=== PATIENT | female | born 1955 | race Caucasian/White ===

== ENCOUNTER 2016-06-10 11:46 | Emergency (ER) | payer OTHER ==
[~2016-06-10] VITALS: Ht 165.1 cm; Wt 87.6 kg
[~2016-06-10 11:46] MED LIST: ASPCH81X PO; CZR50 PO; DICL50TA3 PO; GLUC10007 PO; MULT-506 PO; OMEG10007 PO; PRLSR20 PO; VITACAP26 PO
[2016-06-10 11:52] VITALS: TEMP 36.5; Ht 165.1 cm; Wt 87.6 kg
[2016-06-10] MEDS ORDERED: CHOL1000 PO (12:44)
[2016-06-10] MEDS ORDERED: TRAM-10 PO (12:44)
[2016-06-10] MEDS ORDERED: DIGE1CAP PO (12:44)
[2016-06-10 13:10] LABS: BASO % 0.5 %; BASO ABS # 0.04 K/uL (0-0.2); COMPLETE YES; EOS % 4.4 %; HEMATOCRIT 40.2 % (37-47); IG% 0.1 %; LYMPH % 27.8 %; LYMPH ABS # 2.28 K/uL (1.2-3.4); MEAN CELL VOLUME 90.1 fL (80-100); MEAN CORPUSCULAR HEMOGLOBIN 31.4 pg (25-34); MEAN CORPUSCULAR HGB CONC 34.8 g/dl (32-36); MEAN PLATELET VOLUME 10.8 fL (7.4-10.4); NEUT % 59.2 %; PLATELET COUNT 331 K/uL (130-400); RED BLOOD COUNT 4.46 M/uL (4.2-5.4); WHITE BLOOD COUNT 8.21 K/uL (4.8-10.8)
[2016-06-10 13:26] LABS: BUN/CREATININE RATIO 15.3 (10-20); CALCIUM 9.6 mg/dl (8.5-10.1); CREATININE 0.92 mg/dl (0.60-1.20); POTASSIUM 3.4 mmol/L (3.5-5.1)
--- NOTE | 2016-06-10 13:26 | DIAGNOSTIC IMAGING REPORT ---
CT SCAN OF THE ABDOMEN AND PELVIS WITHOUT IV CONTRAST CLINICAL HISTORY: Right-sided back pain. COMPARISON STUDY: Renal ultrasound dated 12/25/2008. TECHNIQUE: CT scan of the abdomen and pelvis is performed from the lung bases to the proximal femora. Images are reviewed in the axial, sagittal, and coronal planes. IV contrast was not administered for this examination. Automated dose control exposure was utilized. FINDINGS: Lung bases: The heart is normal in size and without pericardial effusion. There are coronary artery calcifications. The lung bases are clear noting dependent atelectasis the there is a moderate hiatal hernia. Liver: The unenhanced liver is normal in size and contour. The liver demonstrates diffusely diminished attenuation consistent with hepatic steatosis. Fatty sparing is seen adjacent to the gallbladder fossa. There is no intrahepatic biliary ductal dilatation. Gallbladder: Unremarkable. Spleen: Normal in size and attenuation. Pancreas: Minimal haziness is questioned around the distal pancreatic body and tail. There is no peripancreatic fluid. Adrenal glands: Unremarkable. Kidneys: The unenhanced kidneys demonstrate mild cortical atrophy and are without hydronephrosis. There are no renal calculi identified. There is no evidence of contour deforming renal mass lesion. Abdominal vasculature: The abdominal aorta is normal in course and caliber. Bowel: The small bowel and colon are normal in course and caliber. There is mild colonic diverticulosis without CT evidence of acute diverticulitis. The appendix is well-visualized and normal. Peritoneum: There is no intraperitoneal free air or abdominal ascites. There is a fat-containing umbilical hernia. Lymphadenopathy: None. Pelvic viscera: The bladder, uterus, and adnexa are normal as visualized. Skeletal structures: The skeletal structures are osteopenic. There is mild lumbosacral spondylosis. No lytic or blastic lesions are seen. Sclerotic change is noted in the sacroiliac joints. IMPRESSION: 1. Minimal haziness/indistinctness is questioned involving the pancreatic body and tail. No definite peripancreatic stranding or fluid is seen. This may simply be related to glandular atrophy. Correlate with clinical findings and serum lipase levels for evidence of mild acute pancreatitis. 2. There are no additional acute infectious or inflammatory findings questioned in the abdomen or pelvis. 3. Moderate hiatal hernia. 4. Hepatic steatosis. 5. Additional changes as above. Electronically signed by: Jeovany Villanueva M.D. 06/10/2016 1:24 PM Dictated Date/Time: 06/10/2016 1:16 PM
[2016-06-10 13:39] LABS: URINE APPEARANCE CLOUDY (CLEAR); URINE BILIRUBIN NEG (NEG); URINE COLOR YELLOW; URINE EPITHELIAL CELL AUTO >30 /lpf (0-5); URINE NITRITE NEG (NEG); URINE PH 5.5 (4.5-7.5); URINE SPECIFIC GRAVITY 1.018 (1.000-1.030); UROBILINOGEN NEG (NEG); ZZUR CULT IF INDIC CLEAN CATCH YES
[2016-06-10 13:40] LABS: MANUAL MICROSCOPIC REQUIRED? NO; REVIEW REQ? NO
--- NOTE | 2016-06-10 13:43 | DIAGNOSTIC IMAGING REPORT ---
CT SCAN OF THE LUMBAR SPINE WITHOUT IV CONTRAST CLINICAL HISTORY: Back pain. COMPARISON STUDY: Abdominal CT performed concurrently on 06/10/2016. TECHNIQUE: CT scan of the lumbar spine is performed from the lower thoracic spine to the sacrum. Images are reviewed in the axial, sagittal, and coronal planes. IV contrast was not administered for this examination. CT DOSE: 1028.47 mGy.cm FINDINGS: The skeletal structures are osteopenic. There is no evidence of fracture or malalignment. Vertebral body height and alignment are maintained throughout the lumbar spine. The transverse and spinous processes appear intact. There is no spondylolysis. No lytic or blastic lesions are seen. Minimal facet arthropathy is noted in the lower lumbar region. There is mdeezgcj-vj-avabwnuq degenerative disc space narrowing at L5-S1 with associated endplate sclerosis and vacuum phenomenon. The remaining disc spaces appear preserved. Small posterior disc bulges are noted at L3-L4, L4-L5, and L5-S1. No large disc herniation is seen. The visualized sacrum and bony pelvis appear intact. The paraspinous soft tissues are normal in appearance. Hepatic steatosis is observed. A retroaortic left renal vein is incidentally noted. IMPRESSION: 1. There is no acute bony abnormality seen involving the lumbosacral spine. 2. Mild spondylotic change as detailed above. Dictated: 06/10/2016 1:29 PM Transcribed: 06/10/2016 1:43 PM WESLEY_Sarah Electronically signed by: Jeovany Villanueva M.D. 06/10/2016 1:56 PM Dictated Date/Time: 06/10/2016 1:29 PM
[2016-06-10] MEDS ORDERED: OXYC1TAB3 PO (14:41)
[2016-06-10] MEDS ORDERED: SULF800T23 PO (14:41)
--- NOTE | 2016-06-10 14:42 | EMERGENCY ROOM VISIT NOTE ---
History First contact with patient: 12:20 Chief Complaint: BACK PAIN Stated Complaint: LOW BACK PAIN History of Present Illness The patient is a 61 year old female who presents to the Emergency Room with complaints of low back pain. The patient reports that she has had pain in her right lower back for the past one month. She does have chronic pain due to arthritis, but states this has worsened over the past 1 month. She was previously taking diclofenac, but states that she had kidney dysfunction and was switched to tramadol. She states that her pain seems to have worsened since switching these medications. She reports that her back pain occasionally wakes her up at night. She rates the discomfort an 8/10. The pain does not radiate into her abdomen or into her legs. The patient also notes that she has had urinary symptoms off and on for the past several weeks. She reports dysuria and pressure when urinating. She also reports that she has been mildly constipated over the past month. She does report some associated nausea and decreased appetite secondary to pain. She denies any blood in her stools, chest pain, shortness of breath, vaginal bleeding/discharge or abdominal pain. Review of Systems A complete 10-point Review of Systems was discussed with the patient, with pertinent positives and negatives listed in the History of Present Illness. All remaining Review of Systems questions can be considered negative unless otherwise specified. Social History Smoking Status: Never Smoker Current/Historical Medications Scheduled Aspirin (Aspirin Chewable), 81 MG PO DAILY Cholecalciferol (Vitamin D3), 1 TAB PO DAILY Fish Oil ([place]-3), 1 CAP PO DAILY Losartan Potassium (Losartan Potassium), 50 MG PO DAILY Multivitamin (Multivitamin), 1 TAB PO DAILY Omeprazole (Prilosec), 20 MG PO DAILY Sulfa/Trimethoprim (Bactrim Ds 800MG/160MG), 1 TAB PO BID Tramadol (Ultram), 1 TAB PO BID Scheduled PRN Digestive Enzymes (Gastrace Digestive Suppor), 1 CAP PO UD PRN for gas Oxycodone Ir (Roxicodone Ir), 1-2 TAB PO Q4H PRN for Pain Allergies Uncoded Allergies: RAGWEED SEASONAL (Allergy, Mild, cough, 04/19/15) Physical Exam Vital Signs Date Time Temp Pulse Resp B/P Pulse Ox O2 Delivery O2 Flow Rate FiO2 06/10/16 14:50 93 17 125/92 95 06/10/16 13:46 95 20 136/99 95 Room Air 06/10/16 11:52 36.5 110 20 133/92 93 Room Air Physical Exam VITALS: Vitals are noted on the nurse's note and reviewed by myself. Vital signs stable. GENERAL: This is a 61-year-old female, in no acute distress, nondiaphoretic, well-developed well-nourished. SKIN: Capillary reflex less than 2 seconds. HEENT: Normocephalic. PERRLA. EOMI. Nares patent. Mucous membranes moist. Neck is supple without nuchal rigidity. HEART: Regular rate and rhythm without murmurs gallops or rubs. LUNGS: Clear to auscultation bilaterally without wheezes, rales or rhonchi. ABDOMEN: Positive bowel sounds x 4. Soft, nontender to palpation. MUSCULOSKELETAL: Mild tenderness of the right lumbar region. No tenderness over the lumbar spinous processes. NEURO: Patient was alert and oriented to person place and time. Normal sensation to light and sharp touch. Medical Decision & Procedures ER Provider Diagnostic Interpretation: CT SCAN OF THE ABDOMEN AND PELVIS WITHOUT IV CONTRAST IMPRESSION: 1. Minimal haziness/indistinctness is questioned involving the pancreatic body and tail. No definite peripancreatic stranding or fluid is seen. This may simply be related to glandular atrophy. Correlate with clinical findings and serum lipase levels for evidence of mild acute pancreatitis. 2. There are no additional acute infectious or inflammatory findings questioned in the abdomen or pelvis. 3. Moderate hiatal hernia. 4. Hepatic steatosis. 5. Additional changes as above. CT SCAN OF THE LUMBAR SPINE WITHOUT IV CONTRAST FINDINGS: The skeletal structures are osteopenic. There is no evidence of fracture or malalignment. Vertebral body height and alignment are maintained throughout the lumbar spine. The transverse and spinous processes appear intact. There is no spondylolysis. No lytic or blastic lesions are seen. Minimal facet arthropathy is noted in the lower lumbar region. There is dqillkhh-zx-ldytjoiw degenerative disc space narrowing at L5-S1 with associated endplate sclerosis and vacuum phenomenon. The remaining disc spaces appear preserved. Small posterior disc bulges are noted at L3-L4, L4-L5, and L5-S1. No large disc herniation is seen. The visualized sacrum and bony pelvis appear intact. The paraspinous soft tissues are normal in appearance. Hepatic steatosis is observed. A retroaortic left renal vein is incidentally noted. IMPRESSION: 1. There is no acute bony abnormality seen involving the lumbosacral spine. 2. Mild spondylotic change as detailed above. Laboratory Results 06/10/16 12:45 Red Blood Count 4.46, Mean Corpuscular Volume 90.1, Mean Corpuscular Hemoglobin 31.4, Mean Corpuscular Hemoglobin Concent 34.8, Mean Platelet Volume 10.8, Neutrophils (%) (Auto) 59.2, Lymphocytes (%) (Auto) 27.8, Monocytes (%) (Auto) 8.0, Eosinophils (%) (Auto) 4.4, Basophils (%) (Auto) 0.5, Neutrophils # (Auto) 4.86, Lymphocytes # (Auto) 2.28, Monocytes # (Auto) 0.66, Eosinophils # (Auto) 0.36, Basophils # (Auto) 0.04 06/10/16 12:45 Test 06/10/16 12:35 06/10/16 12:45 Urine Color YELLOW Urine Appearance CLOUDY (CLEAR) Urine pH 5.5 (4.5-7.5) Urine Specific [place] 1.018 (1.000-1.030) Urine Protein NEG (NEG) Urine Glucose (UA) NEG (NEG) Urine Ketones TRACE (NEG) Urine Occult Blood NEG (NEG) Urine Nitrite NEG (NEG) Urine Bilirubin NEG (NEG) Urine Urobilinogen NEG (NEG) Urine Leukocyte Esterase MODERATE (NEG) Urine WBC (Auto) 5-10 /hpf (0-5) Urine RBC (Auto) 0-4 /hpf (0-4) Urine Hyaline Casts (Auto) 1-5 /lpf (0-5) Urine Epithelial Cells (Auto) >30 /lpf (0-5) Urine Bacteria (Auto) 2+ (NEG) White Blood Count 8.21 K/uL (4.8-10.8) Red Blood Count 4.46 M/uL (4.2-5.4) Hemoglobin 14.0 g/dL (12.0-16.0) Hematocrit 40.2 % (37-47) Mean Corpuscular Volume 90.1 fL (80-100) Mean Corpuscular Hemoglobin 31.4 pg (25-34) Mean Corpuscular Hemoglobin Concent 34.8 g/dl (32-36) Platelet Count 331 K/uL (130-400) Mean Platelet Volume 10.8 fL (7.4-10.4) Neutrophils (%) (Auto) 59.2 % Lymphocytes (%) (Auto) 27.8 % Monocytes (%) (Auto) 8.0 % Eosinophils (%) (Auto) 4.4 % Basophils (%) (Auto) 0.5 % Neutrophils # (Auto) 4.86 K/uL (1.4-6.5) Lymphocytes # (Auto) 2.28 K/uL (1.2-3.4) Monocytes # (Auto) 0.66 K/uL (0.11-0.59) Eosinophils # (Auto) 0.36 K/uL (0-0.5) Basophils # (Auto) 0.04 K/uL (0-0.2) RDW Standard Deviation 41.3 fL (36.4-46.3) RDW Coefficient of Variation 12.5 % (11.5-14.5) Immature Granulocyte % (Auto) 0.1 % Immature Granulocyte # (Auto) 0.01 K/uL (0.00-0.02) Anion Gap 11.0 mmol/L (3-11) Est Creatinine Clear Calc Drug Dose 68.4 ml/min Estimated GFR () 76.8 Estimated GFR (Non- 66.3 BUN/Creatinine Ratio 15.3 (10-20) Calcium Level 9.6 mg/dl (8.5-10.1) Total Bilirubin 0.4 mg/dl (0.2-1) Aspartate Amino Transf (AST/SGOT) 21 U/L (15-37) Alanine Aminotransferase (ALT/SGPT) 28 U/L (12-78) Alkaline Phosphatase 102 U/L (45-117) Total Protein 7.9 gm/dl (6.4-8.2) Albumin 4.0 gm/dl (3.4-5.0) Globulin 3.9 gm/dl (2.5-4.0) Albumin/Globulin Ratio 1.0 (0.9-2) Lipase 259 U/L (73-393) Date/Time Source Procedure Growth Status 06/10/16 12:35 Urine , Clean Catch Urine Culture - Final GREATER THAN THREE TYPES OF ORGANISMS... Complete Medical Decision Differential diagnosis includes pyelonephritis, renal calculus, musculoskeletal back pain, pancreatitis, gastroenteritis, colitis, among others. The patient was evaluated as above. Labs were drawn and IV access was obtained. Imaging studies were performed and read by radiology as above. The patient declined analgesics. The patient was reassessed multiple times during their stay in the emergency department and remained in stable condition. The patient is a 61-year-old female who presents today complaining of right- sided back pain and urinary symptoms. Labs revealed no leukocytosis, anemia or concerning electrolyte abnormalities. Urinalysis was suggestive of infection. The patient has had urinary symptoms and will be placed on a course of Bactrim for suspected UTI pending culture. CT of the abdomen and pelvis without contrast was performed and did show evidence of possible pancreatitis, however the patient's lipase was not elevated and she does not have any right upper quadrant pain/tenderness or vomiting, making pancreatitis unlikely. There was no evidence of kidney stone or other acute infectious finding within the abdomen. CT of the lumbar spine was also performed and was unremarkable. The patient does have chronic back pain and I feel that it has likely worsened since stopping the diclofenac. However, the patient did have kidney dysfunction with diclofenac and I do not recommend restarting this at this time. I did give the patient a prescription for pain medication and instructed her to follow up with her primary care provider this week for further evaluation. She was agreeable to this treatment plan. Based on the patient's presentation, lab results, and imaging studies, I feel the patient is stable for outpatient treatment. The patient's case was reviewed with Dr. Henderson, ED attending physician, who agreed with my assessment and treatment plan. Discharge instructions were reviewed with the patient. The patient verbalized understanding of my assessment and treatment plan and was discharged home in good condition. Impression Primary Impression: Urinary tract infection Additional Impression: Lumbar back pain Departure Information Dispostion Home / Self-Care Condition GOOD Prescriptions Sulfa/Trimethoprim (Bactrim Ds 800MG/160MG) Tab 1 TAB PO BID for 5 Days, #10 TAB Prov: Frances Keller PA-C 06/10/16 Oxycodone Ir (Roxicodone Ir) 5 Mg Tab 1-2 TAB PO Q4H Y for Pain, #15 TAB For Initial Treatment Prov: Frances Keller PA-C 06/10/16 Referrals Frantz Guzman M.D. (PCP) Patient Instructions My [facility] Additional Instructions You have been treated in the Emergency Department for a Urinary Tract Infection (UTI) and back pain. You have been prescribed Bactrim to be taken twice daily for 5 days. This is an antibiotic. All antibiotics have the potential to cause diarrhea. Stop this medication and contact a medical provider if you were to develop any significant adverse side effects including: wheezing, shortness of breath, passing out, vomiting, or a diffuse rash. Always take antibiotics as directed and COMPLETE the ENTIRE course regardless of the improvement of your symptoms. Drink plenty of water and stay well hydrated. As with any trip to the Emergency Department, you should follow-up with your Primary Care Provider from today's visit. You have been prescribed OxyIR to be used for pain control. Take 1-2 tablets every 4-6 hours as needed for pain. This is a narcotic medication. You cannot drive or consume alcohol while on this medicine. This medicine should only be used for pain that cannot be controlled with qabt-ilk-yduviwy pain medicines. Return to the emergency department if your symptoms persist despite treatment plan outlined above or if the following symptoms occur: increased fevers, chills , worsening low back pain, nausea/vomiting, or blood in your urine. Problem Qualifiers Primary Impression: Urinary tract infection Urinary tract infection type: site unspecified Hematuria presence: without hematuria Qualified Codes: N39.0 - Urinary tract infection, site not specified Additional Impression: Lumbar back pain Chronicity: chronic Back pain laterality: right Sciatica presence: without sciatica Qualified Codes: M54.5 - Low back pain; G89.29 - Other chronic pain
[2016-06-10 14:50] VITALS: BP 125/92; PULSE 93; O2SAT 95
== END 2016-06-10 14:51 | disposition home or self-care (01) ==
LOC: C.EDB 11:47 → C.EDC 14:51
DX: N39.0 Urinary tract infection, site not specified (principal); M54.5 Low back pain; G89.29 Other chronic pain; Z79.82 Long term (current) use of aspirin; Z79.899 Other long term (current) drug therapy

== ENCOUNTER 2016-09-16 11:11 | Emergency (ER) | payer OTHER ==
[~2016-09-16] VITALS: Ht 165.1 cm; Wt 81.8 kg
[~2016-09-16 11:11] MED LIST changes: +CHOL1000 PO; -DICL50TA3 PO; +DIGE1CAP PO; -GLUC10007 PO; +OXYC1TAB3 PO; +TRAM-10 PO; -VITACAP26 PO
[2016-09-16 11:14] VITALS: TEMP 36.5; Ht 165.1 cm; Wt 81.8 kg
--- NOTE | 2016-09-16 11:47 | EMERGENCY ROOM VISIT NOTE ---
History Report prepared by Rohit: Mandy Lopez Under the Supervision of: Dr. Jeovany Blank M.D. First contact with patient: 11:27 Chief Complaint: MENTAL HEALTH EVALUATION Stated Complaint: DEPRESSION History of Present Illness The patient is a 61 year old female who presents to the Emergency Room with complaints of worsening depression starting 1 week ago. She is under a lot of stress at home with her son's legal problems. Last week, they set up an intervention for him and sent him to rehab. She states that the intervention was very difficult for her and she has been unable to sleep since then. She has been unable to eat and has had tearful episodes. She feels unable to leave the house because of her emotions. She denies being suicidal. She has a history of depression when she was going through her divorce. She has not been on any medications for the past 13 years. She denies any other medical problems. She would not want to be admitted. She was sent to the ED by her doctor for a quick referral to counselling. Source of History: patient Onset: 1 week ago Position: other (mental health) Quality: other (depression) Timing: worsening Note: Pt is unable to sleep, unable to eat, tearful. Pt denies suicidal ideation. Review of Systems See HPI for pertinent positives & negatives. A total of 10 systems reviewed and were otherwise negative. Past Medical & Surgical Medical Problems: (1) Depression (2) Diabetes Family History Diabetes mellitus FH: heart disease Hypertension Social History Smoking Status: Never Smoker Marital Status: Housing Status: lives with significant other Occupation Status: retired Current/Historical Medications Scheduled Aspirin (Aspirin Chewable), 81 MG PO DAILY Fish Oil ([place]-3), 1 CAP PO DAILY Glucosamine-Chondroitin (Glucosamine & Chondroitin 500-400 mg), 2 CAP PO DAILY Losartan Potassium (Losartan Potassium), 50 MG PO DAILY Multivitamin (Multivitamin), 1 TAB PO DAILY Omeprazole (Prilosec), 20 MG PO DAILY Tramadol (Ultram), 1 TAB PO BID [Calcium], 2 CAP PO DAILY Scheduled PRN Digestive Enzymes (Gastrace Digestive Suppor), 1 CAP PO UD PRN for gas Allergies Uncoded Allergies: RAGWEED SEASONAL (Allergy, Mild, cough, 04/19/15) Physical Exam Vital Signs Date Time Temp Pulse Resp B/P Pulse Ox O2 Delivery O2 Flow Rate FiO2 09/16/16 13:48 78 18 143/91 99 Room Air 09/16/16 11:14 36.5 99 18 146/89 98 Room Air Physical Exam GENERAL: Patient is anxious and tearful at times. HEENT: No acute trauma, normocephalic atraumatic, mucous membranes moist, no nasal congestion, no scleral icterus. NECK: No stridor, no adenopathy, no meningismus, trachea is midline. LUNGS: Clear to auscultation bilaterally, no wheeze, no rhonchi, breath sounds equal. HEART: Without murmurs gallops or rubs, regular rate and rhythm. ABDOMEN: Soft, nontender, bowel sounds positive, no hernias, no peritonitis. EXTREMITIES: No cyanosis or edema, full range of motion of all the joints without pain or difficulty, no signs for acute trauma. NEUROLOGIC: Oriented x 3, no acute motor or sensory deficits, no focal weakness. SKIN: No rash, no jaundice, no diaphoresis. PSYCH: Cooperative, anxious, tearful and upset, denies being suicidal, does not want to stay in the hospital for psychiatric care. Medical Decision & Procedures ED Course 1132: The patient was evaluated in room A6. A complete history and physical exam was performed. 1208: The psych rn case manager has arrived and will speak with the patient. 1313: The psych rn case manager is currently speaking with the patient. 1351: I reevaluated the patient. I discussed results and discharge instructions : She verbalized understanding and agreement. The patient is ready for discharge. Medical Decision Differential diagnoses considered include drug or alcohol abuse, thyroid disorder, suicidal ideation, situational depression/anxiety. The patient presents with anxiety and depression over the issues she is having with her son. She has a previous history of depression. She is not currently on any type of antidepressant or antianxiety medication. The patient states that she is not homicidal or suicidal. She does not want to stay in the hospital. She would just like to get outpatient therapy/counseling. There is no 302 petitioning paperwork against her. The patient was seen by the psychiatric rn case manager. A lot of time was spent talking about her situation. The patient is being discharged with outpatient follow-up. She was given information on counseling. The patient was encouraged to return if feeling worse or if feeling suicidal. Impression Primary Impression: Depression Additional Impression: Anxiety Scribe Attestation The scribe's documentation has been prepared under my direction and personally reviewed by me in its entirety. I confirm that the note above accurately reflects all work, treatment, procedures, and medical decision making performed by me. Departure Information Dispostion Home / Self-Care Referrals Frantz Guzman M.D. (PCP) Forms HOME CARE DOCUMENTATION FORM, IMPORTANT VISIT INFORMATION Patient Instructions My [facility] Additional Instructions follow the advice given by the psychiatry rn case manager return if feeling suicidal or if worsening Problem Qualifiers
[2016-09-16 13:48] VITALS: BP 143/91; PULSE 78; O2SAT 99
[2016-09-16] MEDS ORDERED: GLUC1CAP33 PO (13:51)
[2016-09-16] MEDS ORDERED: CALC-51 PO (13:51)
== END 2016-09-16 14:03 | disposition home or self-care (01) ==
LOC: C.EDB 11:12 → C.EDA 14:03
DX: F32.9 Major depressive disorder, single episode, unspecified (principal); F41.9 Anxiety disorder, unspecified; E11.9 Type 2 diabetes mellitus without complications; Z79.82 Long term (current) use of aspirin; Z79.899 Other long term (current) drug therapy; Z91.09 Other allergy status, other than to drugs and biological substances; Z83.3 Family history of diabetes mellitus; Z82.49 Family history of ischemic heart disease and other diseases of the circulatory system

== ENCOUNTER → 2017-12-17 | Outpatient (CLI) | payer OTHER ==
[~2017-12-17] MED LIST changes: +CALC-51 PO; -CHOL1000 PO; +GLUC1CAP33 PO; -OXYC1TAB3 PO
--- NOTE | 2017-12-17 10:16 | DIAGNOSTIC IMAGING REPORT ---
TWO VIEW CHEST CLINICAL HISTORY: Cough and wheezing. FINDINGS: PA and lateral chest radiographs are obtained. No prior studies are available for comparison at the time of dictation. The cardiomediastinal silhouette is unremarkable. There is mild elevation of the right hemidiaphragm with bibasilar atelectasis. No airspace consolidation or pleural effusion is identified. There is no pneumothorax. The skeletal structures are osteopenic. The bony thorax appears intact. IMPRESSION: No active disease in the chest. Electronically signed by: Jeovany Villanueva M.D. 12/17/2017 10:15 AM Dictated Date/Time: 12/17/2017 10:14 AM
== END | disposition home or self-care (01) ==
LOC: C.RAD1850 09:43
PROVIDERS: ATTEND Physician Assistant
DX: R53.83 Other fatigue (principal); R53.1 Weakness